=== PATIENT | male | born 2000 | race Caucasian/White ===

== ENCOUNTER 2021-05-30 18:42 | Emergency (ER) | payer OTHER | END 2021-05-30 20:00 | disposition home or self-care (01) | LOC: JD.ED 18:42 | DX: S93.402A Sprain of unspecified ligament of left ankle, initial encounter (principal); X50.1XXA Overexertion from prolonged static or awkward postures, initial encounter; Y93.67 Activity, basketball | CPT/HCPCS: 29515; 73610-26-LT; 73610-LT; 99283; 99283-25 ==

== ENCOUNTER 2022-01-07 20:46 | Emergency (ER) | payer BC, OTHER ==
[2022-01-07] MEDS ORDERED: Diphtheria,Pertussis(Acell),Tetanus Vaccine 0.5 ML Syringe IM ONE (21:58)
== END 2022-01-07 22:19 | disposition home or self-care (01) ==
LOC: JD.ED 20:46
DX: S61.001A Unspecified open wound of right thumb without damage to nail, initial encounter (principal); Z23 Encounter for immunization; W26.8XXA Contact with other sharp object(s), not elsewhere classified, initial encounter
CPT/HCPCS: 90471; 90715; 99282; 99282-25